=== PATIENT | female | born 1965 | race Caucasian/White ===

== ENCOUNTER 2023-08-03 13:31 | Outpatient (AMB) | payer OTHER, SELFPAY ==
--- NOTE | 2023-08-03 15:33 | AM.OFFWIN_ITS ---
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 Allergies aspirin Adverse Reaction (Unknown, Verified 08/03/23 15:37) Unknown Do you need a note to return to daycare/school/sports/work: No HPI HPI Comments History of Present Illness Details Patient presents to the walk in clinic today for persistent cough for last 2 weeks She states was sick with the same but his symptoms have since resolved Started with congestion, sore throat, cough, aches. all other symptoms have resolved but cough is lingering Dry, non productive cough. she has been taking nyquil, dayquil, OTC cough suppressants, drinking tea but cough persists. Patient complaining of pain in her ribs when she coughs denies palpitations, syncope, headache, dizziness, weakness Review of Systems Const All systems reviewed & are unremarkable except as noted in HPI and below Physical Exam Vital Signs: Last Vital Signs Temp 99.1 F 08/03/23 15:34 Pulse 85 08/03/23 15:34 BP 118/72 08/03/23 15:34 Pulse Ox 100 08/03/23 15:34 Oxygen Delivery Method Room Air 08/03/23 15:34 BMI result Body Mass Index 34.4 General: awake, alert, oriented. Answers questions appropriately. Fully engaged in examination. Skin: warm, dry, intact HEENT: TMs intact bilaterally, no redness. Posterior pharynx without erythema or exudate. Sclera without icterus or injection. Cardiac: External chest normal in appearance. Respiratory: + dry cough. LSCTAB. Abdomen: without gross distension. Neurological: Oriented to person, place, time and situation. Thought process intact. Psychiatric: Appropriate mood and affect. Good judgment and insight. Results Reviewed Results Reviewed: CXR ordered and independently reviewed: no fractures, infiltrate or effusion noted. Assessment & Plan Assessment & Plan (1) URI (upper respiratory infection): Code(s): J06.9 - Acute upper respiratory infection, unspecified Plan CXR reviewed, no fractures, infiltrate or effusion. URI, no abx warranted. Benzonatate 100mg po bid as needed Prednisone 20mg po BID Rest, drink plenty of fluids, tylenol or motrin as needed. Recommend taking OTC nasal decongestants or flonase. Follow up with pcp or in clinic for any new or worsening symptoms. Go to ER for shortness of breath, chest pain, palpitations, weakness, dizziness. Orders: Orders XR chest 2V Today R05.9 - Cough, unspecified Medications: New benzonatate 100 mg PO BID PRN 20 caps 0RF cough prednisone 20 mg PO BID 10 tabs 0RF Coding Level of Care Code New Pt Level 4 (94789) Diagnoses URI (upper respiratory infection) J06.9
[2023-08-03 15:34] VITALS: BP 118/72; PULSE 85; TEMP 37.3; O2SAT 100; BMI 34.4
== END 2023-08-03 17:00 | disposition home or self-care (01) ==
PROVIDERS: Visit Provider Registered Nurse Emergency
DX: J06.9 Acute upper respiratory infection, unspecified (principal)
CPT/HCPCS: 99203

== ENCOUNTER 2023-08-03 16:05 | Outpatient (REF) | payer OTHER, SELFPAY ==
--- NOTE | ~2023-08-03 | XR_ITS ---
EXAMINATION: XR CHEST CLINICAL INFORMATION: Cough. COMPARISON: None available. TECHNIQUE: 2 views of the chest were obtained. FINDINGS: The lungs are well expanded. No focal consolidation. No pleural effusion. Cardiac silhouette is within normal limits. XR/XR chest 2V IMPRESSION: No acute abnormality.
== END 2023-08-03 16:06 | disposition home or self-care (01) ==
LOC: HO.HMGCX 16:05
PROVIDERS: PCP Family Medicine; Visit Provider Registered Nurse Emergency
DX: R05.9 Cough, unspecified (principal)
CPT/HCPCS: 71046

== ENCOUNTER 2023-09-22 09:15 | Outpatient (AMB) | payer OTHER, SELFPAY ==
[2023-09-22 11:00] VITALS: BP 140/100; PULSE 81; TEMP 36.4; O2SAT 96; BMI 35.2
--- NOTE | 2023-09-22 11:00 | AM.OFFWIN_ITS ---
Intake Vital Signs 09/22/23 11:00 Height 5 ft 6 in Weight 218 lb BMI 35.2 BP 140/100 H Blood Pressure Location Lt brachial Position Sitting Pulse 81 Pulse Source Pulse Oximeter Temp 97.6 F Temp Source Temporal Artery Scan Pulse Oximetry (%) 96 Oxygen Delivery Method Room Air Intake Visit Reasons: EST/stomach pain ([phone]) Intake Note: pt is here today for stomach pain started 3 days Patient Tobacco Use Status: Never used Tobacco Allergies aspirin Adverse Reaction (Unknown, Verified 09/22/23 11:02) Unknown Do you need a note to return to daycare/school/sports/work: Yes HPI HPI Comments History of Present Illness Details This is a 58-year-old female with a past medical history of hypertension, hypothyroidism and appendectomy presenting for evaluation a headache, diarrhea, myalgias and upper abdominal pain that she has had since Thursday. Patient's last episode of diarrhea was yesterday and she has been taking Immodium. Patient reports nausea without vomiting and upper abdominal pain with increased burping and flatulence. Patient states that her upper abdominal pain is not worse with eating however due to her nausea she has been eating sparsely. Patient denies having any fevers, chills or recent sick contacts. [facility] Social History Patient Tobacco Use Status: Never used Tobacco Review of Systems Const All systems reviewed & are unremarkable except as noted in HPI and below Denies chills, Denies fatigue, Denies fever(s), Reports headache(s) and Denies weakness Eyes Reports no additional complaints ENT Reports no additional complaints and Reports headache(s) Resp Reports no additional complaints GI Reports belching, Reports excessive flatus, Reports nausea and Denies vomiting Reports no additional complaints Skin/Breast Reports system reviewed and no additional complaints, except as documented Neuro Reports no additional complaints, Reports headache(s) and Denies weakness Endo Denies fatigue Physical Exam Vital Signs: Last Vital Signs Temp 97.6 F 09/22/23 11:00 Pulse 81 09/22/23 11:00 BP 140/100 H 09/22/23 11:00 Pulse Ox 96 09/22/23 11:00 Oxygen Delivery Method Room Air 09/22/23 11:00 BMI result Body Mass Index 35.2 Const General: cooperative, comfortable, no acute distress, alert, awake and tired appearing Nutritional Appearance: overweight Orientation/consciousness: patient oriented x3 Limitations: no limitations HEENT Head: Yes normal to inspection and Yes normocephalic Ears: hearing grossly normal bilaterally, external ears normal, TM's normal bilaterally and EAC's normal Face and sinus: Yes normal facial exam and Yes sinuses nontender Mouth: Normal oral and palatal mucosa present and moist mucous membranes Throat: Yes posterior oropharynx normal Eyes General: appearance normal, both eyes and all related structures Resp Effort & Inspection: normal respiratory effort, able to speak in complete sentences, no cough and no respiratory distress Auscultation: clear to auscultation bilaterally Cardio Rate: regular rate Rhythm: regular rhythm GI Inspection: Yes normal to inspection and No distended Palpation (GI): Soft to palpation, nontender, no guarding and no hepatomegaly Percussion: Yes normal to percussion Auscultation: normal bowel sounds Skin General skin exam: no rashes or lesions noted Neuro General: patient oriented x3 Psych Appearance: grossly normal Mental Status: mental status grossly normal Insight: Good insight present (Psych) Judgement: Good judgement present (Psych) Assessment & Plan Assessment & Plan (1) Myalgia: Comment: SARS panel ordered and pending. Code(s): M79.10 - Myalgia, unspecified site Plan: Tylenol as needed for myalgias. (2) Nausea: Comment: No vomiting, however patient unable to stay well hydrated. Code(s): R11.0 - Nausea Plan: Zofran every 6 hours as needed with the goal of increased hydration. (3) Epigastric abdominal pain: Comment: Abdominal pain is not reproducible upon examination however given her report of increased burping and flatulence, omeprazole will be trialed. Code(s): R10.13 - Epigastric pain Plan: Omeprazole 40mg daily x 2 weeks; follow-up with PCP within 10-14 days. Orders: Orders SARS-CoV2/FLU/RSV Today M79.10 - Myalgia, unspecified site Medications: New omeprazole 40 mg PO DAILY 14 caps 0RF ondansetron 4 mg PO Q8H PRN 10 tabs 0RF nausea and vomiting Coding Level of Care Code Est Pt Level 3 (43480) Diagnoses Myalgia M79.10 Nausea R11.0 Epigastric abdominal pain R10.13 Time Spent (min) 25
== END 2023-09-22 12:21 | disposition home or self-care (01) ==
PROVIDERS: PCP Family Medicine; Visit Provider Physician Assistant
DX: M79.10 Myalgia, unspecified site (principal); R11.0 Nausea; R10.13 Epigastric pain
CPT/HCPCS: 99213

== ENCOUNTER 2023-09-22 13:39 | Outpatient (REF) | payer OTHER, SELFPAY ==
[2023-09-22 15:37] LABS: Influenza A PCR NEGATIVE (Negative); Influenza B PCR NEGATIVE (Negative); Resp Syncy Virus RNA Qual PCR NEGATIVE (Negative); SARS COV2 PCR INHOUSE NEGATIVE (Negative)
== END 2023-09-22 13:40 | disposition home or self-care (01) ==
LOC: HO.HMGCLNP 13:39
PROVIDERS: Visit Provider Physician Assistant
DX: Z11.52 Encounter for screening for COVID-19 (principal); Z20.822 Contact with and (suspected) exposure to COVID-19; M79.10 Myalgia, unspecified site
CPT/HCPCS: 0241U

== ENCOUNTER 2024-09-21 11:21 | Outpatient (REF) | payer OTHER, SELFPAY ==
[2024-09-21 17:39] LABS: Influenza A PCR NEGATIVE (Negative); Influenza B PCR NEGATIVE (Negative); Resp Syncy Virus RNA Qual PCR NEGATIVE (Negative); SARS COV2 PCR INHOUSE NEGATIVE (Negative)
== END 2024-09-21 11:22 | disposition home or self-care (01) ==
LOC: HO.LAB 11:21
PROVIDERS: PCP Family Medicine; Visit Provider Physician Assistant
DX: B34.9 Viral infection, unspecified (principal); J02.9 Acute pharyngitis, unspecified; R51.9 Headache, unspecified
CPT/HCPCS: 0241U; 87880

== ENCOUNTER 2024-09-21 11:21 | Outpatient (AMB) | payer OTHER, SELFPAY ==
[2024-09-21 12:22] VITALS: BP 110/80; PULSE 77; RESP 17; TEMP 36.7; O2SAT 100; BMI 34.9
--- NOTE | 2024-09-21 12:22 | AM.OFFWIN_ITS ---
Intake Vital Signs 09/21/24 12:22 Height 5 ft 6 in Weight 216 lb BMI 34.9 BP 110/80 Blood Pressure Location Lt brachial Position Sitting Respiration 17 Pulse 77 Pulse Source Pulse Oximeter Temp 98.0 F Temp Source Oral Pulse Oximetry (%) 100 Intake Visit Reasons: EP-body ache, lt ear pain, sore throat, headaches Intake Note: Pt is here today c/o bodyaches,Lt ear pain, S/T and H/A x4days Patient Tobacco Use Status: Never used Tobacco Allergies aspirin Adverse Reaction (Unknown, Verified 09/21/24 12:28) Unknown HPI HPI Comments History of Present Illness Details History - The patient is a 59-year-old female pr esenting with an acute onset of sore throat, headaches, and body aches. - Symptoms started three days ago, initi ally with a sore throat, progressing to headaches and body aches. - The sore throat is described as graspi ng and primarily affects the left side when swallowing. - Body aches make the patient feel as th ough she has been beat up, though no fever is reported. - Increased fatigue is noted, with the p atient requiring more rest and sleep. - Medications taken include Tylenol for headaches and a cold and flu combination medications. - Left ear discomfort is reported, with a sensation similar to being underwater, but no respiratory complaints like difficulty breathing or wheezing. - Patient commenced treatment with Tylen ol and cold/flu medications without significant improvement. Physical Exam General: Cooperative, healthy appearing, comfortable and no acute distress Orientation/consciousness: Patient oriented x3 Limitations: No limitations Head: Normal to inspection Ears: Hearing grossly normal bilaterally, external ears normal, fluid in left ear Nose: Normal external nose present, Normal nares present and No nasal discharge present Face and sinus: Normal facial exam and Yes sinuses nontender Mouth: Normal oral and palatal mucosa present and moist mucous membranes Throat: Yes tonsils normal, Yes uvula midline. Posterior oropharynx erythema Eyes: Appearance normal, both eyes and all related structures Neck: Normal visual inspection Respiratory: Clear to auscultation bilaterally. Normal respiratory effort, able to speak in complete sentences, Actively coughing, no respiratory distress, not tachypneic, no tripod positioning and no use of accessory muscles Cardiovascular: Regular rate and rhythm. Normal S1 and S2 Skin: No rashes or lesions noted Neuro: Patient oriented x3 Extremities: Normal to inspection and Yes no clubbing, cyanosis or edema PFSH Social History Patient Tobacco Use Status: Never used Tobacco Review of Systems Const All systems reviewed & are unremarkable except as noted in HPI and below Physical Exam Vital Signs: Last Vital Signs Temp 98.0 F 09/21/24 12:22 Pulse 77 09/21/24 12:22 Resp 17 09/21/24 12:22 BP 110/80 09/21/24 12:22 Pulse Ox 100 09/21/24 12:22 BMI result Body Mass Index 34.9 Results AMB Rapid Strep AMB Rapid Strep Negative Last Edit by Debra Jeffrey CMA on 09/21/24 12:51 Results Reviewed Results Reviewed: Laboratory Last Values Strep Scn Rapid Clinic Negative 09/21/24 12:32 Assessment & Plan Assessment & Plan (1) Acute viral syndrome: Code(s): B34.9 - Viral infection, unspecified Plan: Plan Based on the evaluation, there is a strong suspicion of influenza, considering the current symptoms and seasonal flu peak. Confirmatory testing for influenza, COVID-19, and RSV is conducted, with pending results. Given the clinical presentation lacking signs of bacterial infection, the primary management i nvolves symptomatic relief. Current treatments including Tylenol should be continued for pain. To address eustachian tube issues contributing to ear discomfort, a nasal steroid spray such as Flonase is advised, with proper administration technique discussed. Due to the window of therapeutic efficacy being exceeded, Tamiflu is not recommended at this time. All decisions will be reassessed following test outcomes. Patient was informed and verbally consented to the use of an ambient scribe for clinic note documentation during this visit Orders: Orders SARS-CoV2/FLU/RSV Today B34.9 - Viral infection, unspecified AMB Rapid Strep Screen Today Z13.9 - Encounter for screening, unspecified Coding Level of Care Code New Pt Level 3 (20432) Diagnoses Acute viral syndrome B34.9
== END 2024-09-21 13:16 | disposition home or self-care (01) ==
PROVIDERS: PCP Family Medicine; Visit Provider Physician Assistant
DX: Z13.9 Encounter for screening, unspecified (principal); B34.9 Viral infection, unspecified

== ENCOUNTER 2025-03-14 08:40 | Outpatient (AMB) | payer OTHER, SELFPAY ==
[2025-03-14 08:43] VITALS: BP 134/86; PULSE 94; TEMP 37.3; O2SAT 99; BMI 34.2
--- NOTE | 2025-03-14 08:43 | MHC.OFFWIV ---
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 - Symptoms began on Thursday with fever, progressing to include cough and nasal congestion. - Fever reached 101?F, reduced to 99?F after Tylenol. - Reports decreased appetite, primarily consuming fluids. - Medications include Rosario-Maunie Plus, Tylenol, and NyQuil. - She has had body aches and chills. - She has had covid in the past but did not check at home. - She denies CP, SOB, abd pain, n/v/d, ear pain, sore throat, or sick contacts. Physical Exam General: Cooperative, healthy appearing, comfortable and no acute distress Orientation/consciousness: Patient oriented x3 Limitations: No limitations Head: Normal to inspection Ears: Hearing grossly normal bilaterally, external ears normal and TM's normal bilaterally Nose: Normal external nose present, normal nares present, and nasal discharge present. Face and sinus: Sinuses nontender to palpation. Mouth: Normal oral and palatal mucosa present and moist mucous membranes noted. Throat: Tonsils normal. Uvula is midline. Posterior oropharynx with erythema and no exudates. Eyes: Appearance normal, both eyes and all related structures Neck: Normal visual inspection, full ROM. No lymphadenopathy noted. Respiratory: Clear to auscultation bilaterally. Normal respiratory effort, able to speak in complete sentences. No respiratory distress, not tachypneic, no tripod positioning and no use of accessory muscles. Cardiovascular: Regular rate and rhythm. Normal S1 and S2 Skin: No rashes or lesions noted Patient was informed and verbally consented to the use of an ambient scribe for clinic note documentation during this visit [facility] Social History Patient Tobacco Use Status: Never used Tobacco Patient : No Review of Systems Const All systems reviewed & are unremarkable except as noted in HPI and below Physical Exam Vital Signs: Last Vital Signs Temp 99.2 F 03/14/25 08:43 Pulse 94 03/14/25 08:43 BP 134/86 03/14/25 08:43 Pulse Ox 99 03/14/25 08:43 Oxygen Delivery Method Room Air 03/14/25 08:43 BMI result Body Mass Index 34.2 Assessment & Plan Assessment & Plan (1) URI with cough and congestion: Code(s): J06.9 - Acute upper respiratory infection, unspecified Plan Most likely URI vs covid vs flu vs RSV vs viral illness Rapid strep is negative in the office Plan - Conducted tests for COVID-19, influenza, and RSV to identify the cause of symptoms. - Advised continuation of symptomatic treatment with Tylenol and rest. - Tessalon perles as needed for cough - Zyrtec D daily - Recommended maintaining hydration and monitoring symptoms. - Provided a work note for time off as needed. Orders: Orders SARS-CoV2/FLU/RSV Today R09.89 - Other specified symptoms and signs involving the circulatory and respiratory systems Medications: New benzonatate 100 mg PO bid-tid PRN 21 caps 0RF Cough 7 days cetirizine-pseudoephedrine 5-120 mg ER 1 tab PO BID 14 tabs 0RF 7 days Coding Level of Care Code Est Pt Level 3 (04889) Diagnoses URI with cough and congestion J06.9
--- OUTSIDE RECORDS SUMMARY | 2025-03-14 09:24 | XMS_ITS | Clinical Summary ---
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 Not on miah e 11/22/2022 Are you concerned about learning? Not on file 11/22/2022 No 11/22/2022 No 11/22/2022 Digital Access Answer Date Recorded No 12/23/2022 No 12/23/2022 Reliable internet access at home? Not on file 12/23/2022 Device with a working camera? 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 It is not the complete legal health record.[facility]
== END 2025-03-14 09:45 | disposition home or self-care (01) ==
PROVIDERS: PCP Family Medicine; Visit Provider Physician Assistant Medical
DX: J06.9 Acute upper respiratory infection, unspecified (principal); Z13.9 Encounter for screening, unspecified

== ENCOUNTER 2025-03-14 08:40 | Outpatient (REF) | payer OTHER, SELFPAY ==
[2025-03-14 11:05] LABS: Resp Syncy Virus RNA Qual PCR NEGATIVE (Negative); SARS COV2 PCR INHOUSE POSITIVE (Negative)
== END 2025-03-14 08:41 | disposition home or self-care (01) ==
LOC: HO.LNP 08:40
PROVIDERS: PCP Family Medicine; Visit Provider Physician Assistant Medical
DX: J06.9 Acute upper respiratory infection, unspecified (principal); R09.89 Other specified symptoms and signs involving the circulatory and respiratory systems; R49.0 Dysphonia; M79.10 Myalgia, unspecified site; R09.81 Nasal congestion; R50.9 Fever, unspecified
CPT/HCPCS: 87637; 87880